=== PATIENT | female | born 1995 | race Caucasian/White ===

== ENCOUNTER 2022-10-21 12:36 | Emergency (ER) | payer BC, SELFPAY ==
[2022-10-21 12:42] VITALS: BP 128/85; PULSE 83; RESP 16; TEMP 36.2; O2SAT 100; BMI 30.2
--- NOTE | 2022-10-21 13:00 | CRLHL7_ITS ---
For Patients: As a result of the Century Cures Act, medical imaging exams and procedure reports are released immediately into your electronic medical record. You may view this report before your referring provider. If you have questions, please contact your health care provider. Indication: Trauma. Technique: Right wrist, 3 views. Comparison: None. Findings: Bones: Alignment is normal. No fractures or bone lesions. Joint spaces: Unremarkable. Soft tissues: Soft tissue swelling surrounding the wrist.. Impression: No sign of acute injury. Dictated by Skyler Aburto MD @ 10/21/2022 2:02:31 PM (Electronically Signed)
[2022-10-21] MEDS: IBUPROFEN 200 MG TABLET 600 MG PO (13:16)
--- NOTE | 2022-10-21 13:59 | ED_ITS ---
HPI - Extremity Injury (Upper) General Date Seen: 10/21/22 Chief Complaint: Extremity Pain/Injury, Upper Stated Complaint: R wrist injury Time Seen by Provider: 10/21/22 12:39 Source: patient Mode of arrival: ambulatory Limitations: no limitations History of Present Illness HPI narrative: Patient is a very nice 27-year-old female right-hand dominant who presents here after a hockey injury yesterday and like rosas, she plays beer leak hockey, and folded over right wrist when she went in the boards, with a FOOSH type mechanism. Since then she has complained of pain along the dorsum of her wrist, she has full range of motion and good maple products maker strength, but it is sore, she called the clinic today and they told her to come in as they did not have any visits. She has not taken any Tylenol or ibuprofen denies any numbness tingling or weakness, there is no other injury to her elbow shoulder neck or back. Previous history of any wrist injury Related Data Home Medications Medication Instructions Recorded Confirmed lamotrigine 150 mg tablet 150 mg PO DAILY 10/21/22 10/21/22 sertraline 100 mg tablet mg PO 10/21/22 Allergies Allergy/AdvReac Type Severity Reaction Status Date / Time No Known Drug Allergies Allergy Verified 10/21/22 12:42 Review of Systems Status of ROS: Reports: 6 or more systems reviewed and unremarkable except as noted in History and below [facility] Social History Smoking Status: Never smoker Do you use any of these nicotine containing products: None How often do you have a drink containing alcohol: never AUDIT-C Alcohol total score: 0 Non-prescribed substance use: denies use Exam Narrative: Exam Narrative: Patient is seen in room 4 she is in no apparent distress, right wrist shows with no swelling noted. In comparison to the left, she has full dorsiflexion palmar flexion both ulnar and radial deviation are normal. No tenderness over the scaphoid area but she is mildly tender over the radial dorsal area. [place] [place] Tender strengths are notably equal bilaterally, sensations normal cap refill is normal, normal elbow supination pronation and flexion extension, and normal shoulder movement are noted. Const: Vital Signs, click to edit/add: Vital Signs - 24 hr 10/21/22 12:42 Temperature 97.1 F L Pulse Rate [Right Pulse Oximeter] 83 Respiratory Rate 16 Blood Pressure [Ri ght Upper Arm] 128/85 Pulse Oximetry 100 Oxygen Delivery Me thod Room Air Documenting provider has reviewed patient's vital signs: yes Course Course Hospital Course: Discussed with her that this could be an occult navicular fracture, I will put her in a thumb spica splint, she will wear this for the next week to 10 days, and within that time will follow-up with primary care for recheck, she is nontender that time and I do not think any further things need to be done but if she is tender than of repeat x-ray will need to be done, she understands this. Splint only comes off when she showers. Tylenol ibuprofen for the discomfort. Vital Signs Vital signs: Initial Vital Signs Temperature 97.1 F L 10/21/22 12:42 Temperature Source Temporal Artery Scan 10/21/22 12:42 Pulse Rate 83 10/21/22 12:42 Pulse Rhythm Regular 10/21/22 12:42 Respiratory Rate 16 10/21/22 12:42 Blood Pressure 128/85 10/21/22 12:42 Blood Pressure Mean 99 10/21/22 12:42 Pulse Oximetry 100 10/21/22 12:42 Oxygen Delivery Method Room Air 10/21/22 12:42 Vital Signs Temperature 97.1 F L 10/21/22 12:42 Pulse Rate 83 10/21/22 12:42 Respiratory Rate 16 10/21/22 12:42 Blood Pressure 128/85 10/21/22 12:42 Pulse Oximetry 100 10/21/22 12:42 Oxygen Delivery Method Room Air 10/21/22 12:42 Temperature 97.1 F L 10/21/22 12:42 Pulse Rate 83 10/21/22 12:42 Respiratory Rate 16 10/21/22 12:42 Blood Pressure 128/85 10/21/22 12:42 Pulse Oximetry 100 10/21/22 12:42 Oxygen Delivery Method Room Air 10/21/22 12:42 MDM - Extremity Injury (Upper) Differential Diagnosis Differential diagnosis: Likely sprain and strain of wrist, fracture of wrist, finger sprain, Colles' fracture, fracture of hand and dislocation of shoulder Medical Records Attestation: I reviewed the patient's medical records. Imaging Data Wrist x-ray: My impression: No evidence of wrist abnormalities seen on x-ray, radiological over-read pending Radiologist's impression: atient: BRENDA HENRIQUEZ Facility:?[facility] Patient ID:?[id number] Site Patient ID:?[id number]. Site :?1997 Study:?XRay Extremity Right WRIST 3 VIEW-10/21/2022 1:13:52 PM Ordering Physician:Errol Orellana Final Report: Indication: Trauma. Technique: Right wrist, 3 views. Comparison: None. Findings: Bones: Alignment is normal. No fractures or bone lesions. Joint spaces: Unremarkable. Soft tissues: Soft tissue swelling surrounding the wrist.. Impression: No sign of acute injury. Dictated by Skyler Aburto MD @ 10/21/2022 2:02:31 PM (Electronic Signature) Discharge Plan Discharge Clinical Impression: Sprain and strain of wrist Patient Disposition: Home, Self-Care Condition: Stable Instructions: Wrist Injury (ED), Sprain (ED), Wrist Sprain (ED), Cold Compress or Soak (ED) Additional Instructions: Home rest use of ice and and the splint, follow-up in 1 weeks time mandatory, for recheck with primary care, if your able to move your wrist normally at that point, then no x-ray will be needed but if your still sore and I would recommend a re-x-ray to rule out a navicular fracture. Tylenol or ibuprofen also suggest. Prescriptions: No Action lamotrigine 150 mg tablet 150 mg PO DAILY sertraline 100 mg tablet PO Follow Up/Referrals: Caitlyn Lopez DO [Primary Care Provider] - Stand Alone Forms: [facility] [employer] Info Instructions
== END 2022-10-21 14:13 | disposition home or self-care (01) ==
PROVIDERS: Emergency Provider Family Medicine; PCP Family Medicine
DX: S63.501A Unspecified sprain of right wrist, initial encounter (principal); W01.0XXA Fall on same level from slipping, tripping and stumbling without subsequent striking against object, initial encounter; Y93.22 Activity, ice hockey
CPT/HCPCS: 29125; 73110; 99283; A9270

== ENCOUNTER 2024-09-24 18:29 | Emergency (ER) | payer BC, SELFPAY ==
--- OUTSIDE RECORDS SUMMARY | 2024-09-24 18:30 | XMS_ITS | Clinical Summary ---
Author Organization [email or web address] Address [address] [place] [id number] Care Team Providers Care Jigger Operator Name Role Phone Caitlyn Lopez DO Primary Care Provider [phone] Allergies No known active allergies Medications sertraline (ZOLOFT) 100 mg tabletIndicatio ns:Anxiety disorder, unspecified type Take 1.5 Tablets (150 mg) by mouth once daily. 135 Tablet 1 07/22/19 25 Active QUEtiapine (SEROQUEL) 50 mg tabletIndicatio ns:Bipolar 2 disorder, major depressive episode (HC) 25-100 mg nightly as needed for manic symptoms or insomnia. 60 Tablet 1 07/22/19 25 Active lamoTRIgine 200 mg tabletIndicatio ns:Bipolar 2 disorder, major depressive episode (HC) TAKE 1 TABLET (200 MG) BY MOUTH ONCE DAILY. 90 Tablet 1 09/20/19 25 Active lamoTRIgine 200 mg tabletIndicatio ns:Bipolar 2 disorder, major depressive episode (HC) Take 1 Tablet (200 mg) by mouth once daily. 90 Tablet 07/22/19 25 025 Discontinued Hospital, Clinic, or Other Facility Administered Medication Ordered Dose Route Frequency Start Date End Date Status levonorgestrel (KYLEENA) 17.5 mcg/24 hr (5 yrs) 19.5 mg intrauterine device (IUD) 1 DeviceIndications:Encounter for IUD insertion 1 Device IU Q 5 YEARS 09/15/2024 Active Active Problems Problem Noted Date Diagnosed Date Panic disorder with agoraphobia 02/01/2024 Pap smear for cervical cancer screening 12/06/19 22 Overview (12/05/2021): 10/2021 NIL. 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 Leonel Anders 12/30/2017 Labral tear of right hip joint 10/15/2017 Bipolar 2 disorder, major depressive episode Dysmenorrhea 04/20/2015 Anxiety disorder 04/20/2015 Tear of right acetabular labrum Resolved Problems Problem Noted Date Diagnosed Date Resolved Date Major depressive disorder, s aj episode, moderate 04/20/2015 08/18/2016 Encounters Date Type Department Care Team Description 09/17/2024 Refill [facility] [address] [place] [address] Lola Diego MD Refill Request (Lamotrigine) 09/15/2024 9:10 AM CDT Office Visit [facility] [address] [place] [address] Caitlyn Lopez DO Contraception (options) 09/15/2024 Travel 09/09/2024 10:45 AM CDT Telemedicine [facility] [address] [place] [address] Lola Diego MD Telehealth 09/09/2024 Travel 07/28/2024 Patient Outreach [facility] Care Management - Advanced Care Team [facility] [place] [address] Ginny Villanueva Complex Care Management (CCM ENGAGEMENT OUTREACH) 07/22/2024 9:45 AM SOFTWARE ENGINEER Telemedicine [facility] [address] [place] [address] Lola Diego MD Telehealth; Medication Management 07/22/2024 Travel 07/06/2024 Telephone [facility] [address] [place], [place] [address] Dash Melendez MD Results (MRI) 07/05/2024 8:56 AM SOFTWARE ENGINEER - 07/05/2024 11:59 PM SOFTWARE ENGINEER Hospital Encounter [facility] [address] [place], [place] [address] Dash Melendez MD Hip pain, left; Left hip impingement syndrome 07/05/2024 Travel from Last 3 Months Immunizations Immunization Administration Dates Next Due COVID-19 VACCINE SPIKEVAX (M ODERNA 50MCG/0.5ML) 12YO+ PFS 05/10/2024 DTaP 02/03/2003, 0,01/18/1998,11/03,1997 DTaP-HIB (TriHIBIT) 08/27/2000, 8,1997,09/13 HHgY-IjeJ-WZS (Pediarix) 1997 HPV 9 (Gardasil 9) 01/23/2016 Hepatitis A (Peds) 02/21/2016 Hepatitis A (Peds),Unspecified 02/21/2016 Hepatitis B (Peds) 02/21/2016, 8,1997,07/03 Hepatitis B, Unspecified 02/21/2016,01/06,1997,07/03 Hib Conjugate, Unspecified 08/27/2000,,1997,09/13 Human Papilloma Virus Vaccine 08/28/2011, 011 Human Papilloma Virus Vaccin e, Unspecified 01/23/2016,08/28/2011,01/29/2011 INFLUENZA, IIV3 PF (AGE >= 6 MO) 04/25/2024 Inactivated Polio Vaccine 02/03/2003,04/2000,1997,09/13 Influenza Virus, Unspecified 02/21/2016 Influenza, IIV4 04/25/2024, 3,04/04/2021,02/20 MENINGOCOCCAL VACCINE 2 VIAL 2MO-55YO (MENVEO) 02/21/2016 MMR 02/03/2003,1998 MMRV 02/03/2003,1998 Meningococcal Vaccine 02/21/2016 Tdap 05/28/2021,01/29/2011 Tdap, Unspecified 02/03/2003, 0,1997,09/13 Tuberculin (PPD) 07/26/2013,06/15/2013 Varicella Vaccine 08/28/2011,01/29/2011 Family History Medical History Relation Name Comments Unknown Father Anxiety disorder Mother Hypertension Mother Anesthesia Problem No Family History Blood Disease No Family History Relation Name Status Comments Father Mother Social History Tobacco Use Types Packs/Day Years Used Date Smoking Tobacco: Never Smokeless Tobacco: Never Tobacco Cessation:Counseling Given: Yes Alcohol Use Standard Drinks/Week Comments Yes 0 (1 standard drink = 0.6 oz pur e alcohol) 2-3 drinks a month PHQ-2 Answer Date Recorded PHQ-2 TOTAL SCORE 0 09/09/2024 Social Connections Answer Date Recorded Do you often feel lonely or isolated from those around you? 0 05/10/2024 Alcohol Use Answer Date Recorded How often do you have a drink containing alcohol ? 2 06/15/2023 How many drinks containing a lcohol do you have on a typical day when you are drinking? 0 06/15/2023 How often do you have five or more drinks on one occasion? 0 06/15/2023 Financial Resource Strain Answer Date R ecorded Difficulty of Paying Living Expenses 3 05/10/2024 Difficulty of Paying Living Expenses Not on file 05/10/2024 Food Insecurity Answer Date Recorded Do you worry your food will run out before you are able to buy more? 1 05/10/2024 Transportation Needs Answer Date Record ed Does lack of transportation keep you from medica l appointments? 1 05/10/2024 Does lack of transportation keep you from work, meetings or getting things that you need? 1 05/10/2024 Housing Stability Answer Date Recorded What is your housing situation today? 1 05/10/2024 Utilities Answer Date Recorded Do you have trouble paying f or utilities (for example, heat, electricity, water, phone)? 1 05/10/2024 Comments No Sex and Gender Information Value Date Recorded Sex Assigned at Female 05/24/2021 11:15 PM SOFTWARE ENGINEER Legal Sex Female 8:12 AM SOFTWARE ENGINEER Gender Identity Female 05/24/2021 11:15 PM SOFTWARE ENGINEER Sexual Orientation Not on file Obstetrics History Para Term AB IAB SAB Ectopic Multiple Livin g Live Births 0 0 0 0 0 0 0 0 0 0 Last Filed Vital Signs Vital Sign Reading Time Taken Comments Blood Pressure 111/70 09/15/2024 9:08 AM CDT Pulse 91 09/15/2024 9:08 AM CDT Temperature 36.7 C (98.1 F) 06/15/2024 1:05 PM SOFTWARE ENGINEER Respiratory Rate 16 10/16/2017 1:45 PM CDT Oxygen Saturation 99% 09/15/2024 9:08 AM CDT Inhaled Oxygen Concentration - - Weight 70.3 kg (155 lb) 09/15/2024 9:08 AM CDT Height 155.6 cm (5' 1.25) 09/15/2024 9:08 AM CD T Body Mass Index 29.05 09/15/2024 9:08 AM CDT Plan of Treatment Upcoming Encounters Date Type Department Care Team (Late st Contact Info) Description 10/20/2024 11:00 AM CDT Office Visit [facility] [address], [place] [id number] Giana Davis, [facility] [address] [place], [place] [id number] Health Maintenance Due Date Last Done Comments HIV for age 15-65 2012 Hepatitis C screening for age 18-79 2015 Depression screening for age 12+ 09/09/2025 09/09/2024, 07/22/2024, 04/04/2024, Additional history exists BMI (ht and wt on same day) for age 18+ 09/15/2025 09/15/2024, 06/15/2023, 10/01/2022, Additional history exists Pap test for age 21-65 09/16/2027 , 10/31/2021, 10/14/2018 Tetanus booster 05/28/2031 05/28/2021, 01/07, 02/03/2003, Additional history exists Tdap Completed 05/28/2021, 01/07, 02/03/2003, Additional history exists Influenza Vaccine Completed 04/25/2024, , 03/04/2023, Additional history exists COVID-19 vaccine series Completed 05/10/2024, 05/09 Pneumococcal series for age 6-49 Aged Out No longer eligible based on patient's age to complete this topic Medical Devices Implanted Type Area Traffic Analyst Device Identifier Shelf Expiration Date Model / Serial / Lot Ancr Shira [employer] Knotless - [id number] Implanted:Qty: 1 on 10/16/2017 by Darci Anders MD at [facility] Right: Hip [employer] 02/24/2019 [id number] / / [id number] Procedures Procedure Name Priority Date/Time Associated Diagnosis Comments HPV HIGH RISK Routine 09/15/2024 9:33 AM CDT Cervical cancer screening GC CHLAMYDIA TRACH PROBE Routine 09/15/2024 9:33 AM CDT Encounter for screening examination for chlamydial infection MR ARTHROGRAM HIP LEFT Routine 07/05/2024 11:08 AM SOFTWARE ENGINEER Hip pain, left Left hip impingement syndrome XR INJ CT/MR ARTHROGRAM HIP LEFT Routine 07/05/2024 10:16 AM SOFTWARE ENGINEER Hip pain, left Left hip impingement syndrome from Last 3 Months Results * GC & CHLAMYDIA DNA PCR [[id number]] (09/15/2024 9:33 AM CDT) CHLAMYDIA PROBE Negative 10:15 PM CDT [facility] N GONORRHOEAE PROBE Negative 09/15/2024 10:15 PM CDT [facility] Other ENDOCERVICAL CYTOLOGIC MATERIAL / Unknown Non-Blood / Unknown 09/15/2024 9:33 AM CDT 09/15/2024 10:05 AM CDT us Caitlyn Lopez DO MICROBIOLOGY Final Resu lt Performing Organization Address [facility] Co de Phone Number [facility] [address] [address], * HPV HIGH RISK (09/15/2024 9:33 AM CDT) TYPE 16 Negative Negative 09/19/2024 2:44 PM CDT [facility] TYPE 18 Negative Negative 09/19/2024 2:44 PM CDT [facility] OTHER HIGH RISK TYPES Negative Negative 09/19/2024 2:44 PM CDT [facility] Other (Cervical) Non-Blood / Unknown 09/15/2024 9:33 AM CDT 09/16/2024 8:27 AM CDT Narrative [facility] - 09/19/2024 2:44 PM CDT HPV types 16, 18, 31, 33, 35, 39, 45, 51, 52, 56, 58, 59, 66 and 68 DNA were undetectable or below the pre-set threshold. Methodology: Vandana Cristina 4800 HPV Test [facility] Itzel Lopez MICROBIOLOGY Final Resu lt Performing Organization Address [facility] de Phone Number [facility] [address] [address], * MR ARTHROGRAM HIP LEFT (07/05/2024 11:08 AM SOFTWARE ENGINEER) Anatomical Region Laterality Modality HIPL Magnetic Resonan ce 07/05/2024 4:13 PM SOFTWARE ENGINEER Narrative 07/05/2024 4:13 PM SOFTWARE ENGINEER For Patients: As a result of the 21st Century Cures Act, medical imaging exams and procedure reports are released immediately into your electronic medical record. You may view this report before your referring provider. If you have questions, please contact your health care provider. INDICATION: Hip pain. Labral tear suspected. COMPARISON: Plain films 10 May 2024. TECHNIQUE: Axial, coronal, sagittal and oblique axial T1 fat sat and sagittal and axial PD fat sat small field left hip CT dilute intra-articular gadolinium. Coronal T1 PD fat-sat Dejuan large sequences. FINDINGS: Left hip: No fracture, bone lesion or avascular necrosis with uniform well- maintained articular cartilage thickness and signal. A short curvilinear near full- thickness labral tear anterior margin best seen image 9 series 10, image 13 series 11 and image 8 series 7. No paralabral cyst. Peritrochanteric soft tissues are normal. Very slight bulbous fullness at the anterior and superior femoral head. Normal acetabular morphology. Pelvis: Artifact over the right ilium presumably from hardware. This causes signal distortion an artifact over the right hip. No obvious abnormality on large field imaging. No pelvic mass. No adenopathy. IMPRESSION : Short linear near full-thickness anterior left hip labral tear. Slightly aspherical femoral head. There may be some mild cam type impingement morphology. No chondromalacia. Dictated by Dash Lennon MD @ 07/05/2024 4:13:27 PM (Electronically Signed) Procedure Note Dash Lennon MD - 07/05/2024 For Patients: As a result of the Century Cures Act, medical imagingexams and procedure reports are released immediately into your electronicmedical record. You may view this report before your referring provider.If you have questions, please contact your health care provider. INDICATION: Hip pain. Labral tear suspected. COMPARISON: Plain films 10 May 2024. TECHNIQUE: Axial, coronal, sagittal and oblique axial T1 fat sat and sagittal andaxial PD fat sat small field left hip CT dilute intra-articulargadolinium. Coronal T1 PD fat- sat Dejuan large sequences. FINDINGS: Left hip: No fracture, bone lesion or avascular necrosis with uniformwell- maintained articular cartilage thickness and signal. A shortcurvilinear near full-thickness labral tear anterior margin best seenimage 9 series 10, image 13 series 11 and image 8 series 7. No paralabralcyst. Peritrochanteric soft tissues are normal. Very slight bulbousfullness at the anterior and superior femoral head. Normal acetabularmorphology. Pelvis: Artifact over the right ilium presumably from hardware. Thiscauses signal distortion an artifact over the right hip. No obviousabnormality on large field imaging. No pelvic mass. No adenopathy. IMPRESSION : Short linear near full-thickness anterior left hip labral tear. Slightlyaspherical femoral head. There may be some mild cam type impingementmorphology. No chondromalacia. Dictated by Dash Lennon MD @ 07/05/2024 4:13:27 PM (Electronically Signed) us Dash Melendez MD MR Final Resu lt * XR INJ CT/MR ARTHROGRAM HIP LEFT (07/05/2024 10:16 AM SOFTWARE ENGINEER) Anatomical Region Laterality Modality HIPL Computed Radiogr aphy, Other 07/05/2024 10:2 8 AM SOFTWARE ENGINEER Impressions 07/05/2024 10:28 AM SOFTWARE ENGINEER Successful left hip arthrogram, pre-MRI. Dictated by Lisa Rocha MD @ 07/05/2024 10:28:36 AM (Electronically Signed) Narrative 07/05/2024 10:28 AM SOFTWARE ENGINEER For Patients: As a result of the Cures Act, medical imaging exams and procedure reports are released immediately into your electronic medical record. You may view this report before your referring provider. If you have questions, please contact your health care provider. INDICATION: Left hip pain TECHNIQUE: Fluoroscopically-guided left hip arthrogram, pre-MRI. Fluoroscopy time: 24 seconds. 1 image. FINDINGS: The examination and risks were fully explained to the patient. A consent form was signed and a time-out conducted prior to initiating the study. Utilizing sterile procedure and 1 percent Xylocaine as local anesthesia, a 22- gauge spinal needle was directed into the left hip joint. 12 cc of a solution (containing 10 cc Omnipaque-300, 5 cc sterile saline, 5 cc ropivacaine 0.5 percent and 0.2 cc gadolinium) was injected. No bleeding at the puncture site or complication. The patient was stable at the termination of the procedure. Procedure Note Ian Rocha MD - 07/05/2024 For Patients: As a result of the Cures Act, medical imagingexams and procedure reports are released immediately into your electronicmedical record. You may view this report before your referring provider.If you have questions, please contact your health care provider. INDICATION: Left hip pain TECHNIQUE: Fluoroscopically-guided left hip arthrogram, pre-MRI. Fluoroscopy time: 24 seconds. 1 image. FINDINGS: The examination and risks were fully explained to the patient. A consentform was signed and a time-out conducted prior to initiating the study. Utilizing sterile procedure and 1 percent Xylocaine as local anesthesia, a22- gauge spinal needle was directed into the left hip joint. 12 cc of asolution (containing 10 cc Omnipaque-300, 5 cc sterile saline, 5 ccropivacaine 0.5 percent and 0.2 cc gadolinium) was injected. No bleedingat the puncture site or complication. The patient was stable at thetermination of the procedure. IMPRESSION: Successful left hip arthrogram, pre-MRI. Dictated by Lisa Rocha MD @ 07/05/2024 10:28:36 AM (Electronically Signed) Dash Melendez MD FLUOROSCOPY Final Resu lt from Last 3 Months Insurance [facility] [id number] [place] [address] [facility] [place] [address] [facility] ADVANTAGE PLAN [place] [id number] [place] [address] [place] [address] Advance Directives * Full Code (Latest Code Status on File) Date Activated Date Inactivated Comments 10/16/2017 6:13 AM 10/16/2017 7:37 AM Care Teams Jigger Operator Relationship Specialty Start Date End Date Caitlyn Lopez [place] [address] PCP - General Family Practice 06/09/16
--- OUTSIDE RECORDS SUMMARY | 2024-09-24 18:30 | XMS_ITS | Clinical Summary ---
Author Organization [employer] Address [address] [place] [address] [address] [place] [address] Care Team Providers Care Aemt Name Role Phone Provider, No Attributed RESOURCE Unavailable Unavailable Allergies No known active allergies Medications sertraline (ZOLOFT) 100 mg tablet Take 200 mg by mouth 1 time per day Active lamoTRIgine (LAMICTAL) 100 mg tablet Take 100 mg by mouth 1 time per day Active miscellaneous medication MISC 1 time per day control Active MELOXICAM PO Take by mouth 1 time per day Active amoxicillin-cla vulanate potassium (AUGMENTIN) 875-125 mg tabletIndicatio ns:Acute maxillary sinusitis, recurrence not specified Take 1 tablet by mouth 2 times a day 20 tablet 04/10/2017 Active Active Problems No known active problems Social History Tobacco Use Types Packs/Day Years Used Date Smoking Tobacco: Never Smokeless Tobacco: Never Alcohol Use Standard Drinks/Week Comments No 0 (1 standard drink = 0.6 oz pur e alcohol) Comments Unknown Sex and Gender Information Value Date Recorded Sex Assigned at Not on file Legal Sex Female 2:35 PM CDT Gender Identity Not on file Sexual Orientation Not on file Last Filed Vital Signs Vital Sign Reading Time Taken Comments Blood Pressure 100/58 04/10/2017 2:47 PM CDT Pulse 64 04/10/2017 2:47 PM CDT Temperature 36.9 C (98.5 F) 04/10/2017 2:47 PM CDT Respiratory Rate 18 04/10/2017 2:47 PM CDT Oxygen Saturation - - Inhaled Oxygen Concentration - - Weight 66.7 kg (147 lb 1.6 oz) 04/10/2017 2:47 P M CDT Height - - Body Mass Index - - Plan of Treatment Health Maintenance Due Date Last Done Comments Hepatitis C Screening 1997 HIV One Time Screening Ages 15-65 2012 Hepatitis B Vaccine (1 of 3 - 19+ 3-dose series) 2016 Lipid Screening 2018 Pap Smear 2018 TDAP/TD VACCINE (1 - Tdap) 2018 Covid-19 Vaccine ( - 2023-2 5 season) 2024 Influenza Vaccine (#1) 2024 HPV 27-45yr Vaccine (1 - 3-D OSE SERIES) 2024 HPV Vaccine Aged Out No longer eligi ble based on patient's age to complete this topic Pneumococcal Vaccine (0-5yr; and At-risk 6-49yr) Aged Out No longer eligible b ased on patient's age to complete this topic Care Teams Aemt Relationship Specialty Start Date End Date Provider, No Attributed, RESOURCE [address] PCP - Attributed Provider 05/07/17
--- NOTE | 2024-09-24 18:31 | ED_ITS ---
HPI - General Adult General Time Seen by Provider: 18:31 Date Seen: 09/24/24 Chief complaint: Urogenital Problems, Female Stated complaint: Pelvic pain Time Seen by Provider: 09/24/24 18:30 Source: patient, RN notes reviewed and old records reviewed Mode of arrival: ambulatory Limitations: no limitations History of Present Illness HPI narrative: 29-year-old female who presents today with pelvic pain. Patient had an IUD placed on the , had some cramping after that which resolved but then notes 2 days of sharp right lower quadrant pain. Pain is constant, worse with movement. Patient had intercourse a couple of days ago, pain started after that. Related Data Home Medications ?Medication ?Instructions ?Recorded ?Confirmed lamotrigine 150 mg tablet 150 mg PO DAILY 10/21/22 09/24/24 sertraline 100 mg tablet 150 mg PO Q24H 10/21/22 09/24/24 Allergies Allergy/AdvReac Type Severity Reaction Status Date / Time No Known Drug Allergies Allergy Verified 09/24/24 19:04 PFSH PFS Social History Smoking Status: Never smoker Do you use any of these nicotine containing products: None How often do you have a drink containing alcohol: never AUDIT-C Alcohol total score: 0 Non-prescribed substance use: denies use Exam Narrative: Exam Narrative: General: Well-developed and well-nourished, no acute distress Head: Atraumatic and normocephalic Eyes: Pupils are equal reactive, extraocular motions intact, conjunctiva clear ENT: External nose and ears are normal, posterior pharynx without erythema or exudate Neck: No midline cervical tenderness, full spontaneous range of motion the neck, trachea midline, no adenopathy Heart: Regular rate and rhythm no murmurs or thrills Lungs: Clear to auscultation bilaterally without wheezes or crackles Abdomen: Soft, right lower quadrant tenderness, nondistended with active bowel sounds Musculoskeletal: No tenderness, deformity, or edema Neurologic: Awake, alert, and oriented x3, no gross focal neurologic deficits, cranial nerves intact as tested Psych: Mood and affect are appropriate Skin: No rashes Const: Vital Signs, click to edit/add: Vital Signs - 24 hr 09/24/24 18:35 Temperature 98.7 F Pulse Rate [Pulse Oximeter] 86 Respiratory Rate 18 Blood Pressure [Ri ght Upper Arm] 129/75 Pulse Oximetry 99 Oxygen Delivery Me thod Room Air Course Course ED Course: Reviewed prior records, patient has had chronic hip pain, MR arthrogram of the hip performed July 05 demonstrated 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 Reviewed most recent primary care visit from September 15 which was for contraception discussion, had an IUD inserted at that time. Patient seen examined, presents with right lower quadrant tenderness 1 week after having an IUD placed. On exam here, patient is finally stable, awake and alert, right lower quadrant tenderness. Although this could be IUD related pain, it is very obviously the right lower quadrant so also consider non gynecologic causes including acute appendicitis, kidney stone, mesenteric adenitis. Also consider alternative gynecologic causes including ovarian cyst or torsion. Unfortunately, due to location of pain and recent history, patient will need both CT scan and ultrasound for complete evaluation of both gynecologic and non gynecologic causes for pain. Reevaluation(s) Time of Reevaluation #1: 19:27 Reevaluation #1: Labs independently interpreted by me with normal CBC. CT scan of the abdomen pelvis independently to baby without evidence of appendicitis, does demonstrate cysts on the right ovary. Spoke with process safety engineering technologist, there are cysts on the right ovary with no evidence of torsion. IUD is in the uterus. Vital Signs Vital signs: Initial Vital Signs Temperature 98.7 F 09/24/24 18:35 Temperature Source Temporal Artery Scan 09/24/24 18:35 Pulse Rate 86 09/24/24 18:35 Respiratory Rate 18 09/24/24 18:35 Blood Pressure 129/75 09/24/24 18:35 Blood Pressure Mean 93 09/24/24 18:35 Pulse Oximetry 99 09/24/24 18:35 Oxygen Delivery Method Room Air 09/24/24 18:35 Vital Signs Temperature 98.7 F 09/24/24 18:35 Pulse Rate 86 09/24/24 18:35 Respiratory Rate 18 09/24/24 18:35 Blood Pressure 129/75 09/24/24 18:35 Pulse Oximetry 99 09/24/24 18:35 Oxygen Delivery Method Room Air 09/24/24 18:35 Temperature 98.7 F 09/24/24 18:35 Pulse Rate 86 09/24/24 18:35 Respiratory Rate 18 04/19/25 18:35 Blood Pressure 129/75 04/19/25 18:35 Pulse Oximetry 99 09/24/24 18:35 Oxygen Delivery Method Room Air 09/24/24 18:35 Medical Decision Making Lab Data Labs: Lab Results 09/24/24 Range/Units 19:00 WBC 7.42 (4.50-11.00) K/uL RBC 4.85 (4.00-5.20) m/uL Hgb 14.4 (12.0-16.0) gm/dL Hct 42.8 (33.0-51.0) % MCV 88 (80-100) fL MCH 30 (26-34) pg MCHC 34 (32-36) gm/dL RDW Coeff of Emili 12.0 (11.5-15.5) % Plt Count 367 (140-440) K/uL Neut % (Auto) 65.6 (42.0-72.0) % Lymph % (Auto) 25.6 (20-44) % [place] % (Auto) 6.3 (0.0-11.0) % Eos % (Auto) 2.0 (0.0-7.0) % Baso % (Auto) 0.4 (0.0-3.0) % Neut # (Auto) 4.86 (1.7-7.0) K/uL Lymph # (Auto) 1.90 (0.90-2.90) K/uL [place] # (Auto) 0.50 (0.00-0.90) K/UL Eos # (Auto) 0.15 (0.00-0.50) K/uL Baso # (Auto) 0.03 (0.00-0.30) K/uL Abs Immat Gran (auto) 0.01 (0.00-0.30) K/uL Imm/Tot Granulo (auto) 0.1 % Sodium 137 (135-149) mmol/L Potassium 4.0 (3.6-5.1) mmol/L Chloride 103 (96-114) mmol/L Carbon Dioxide 24 (20-32) mmol/L Anion Gap 10 (7-15) mEq/L BUN 15 (5-24) mg/dL Creatinine 0.7 (0.5-1.5) mg/dL Estimated Creat Clear 91.10 Estimated GFR 121 ml/min Glucose 109 (60-115) mg/dL Calcium 9.4 (8.4-10.6) mg/dL Discharge Plan Discharge Clinical Impression: Ovarian cyst, IUD contraception Patient Disposition: Home w/ Parent or Adult Condition: Stable Instructions: Ovarian Cyst (ED) Additional Instructions: Your IUD appears well positioned. Take Tylenol and ibuprofen as needed for ovarian cyst. Activity Level: Activity as Tolerated Discharge Diet: Regular Prescriptions: No Action lamotrigine 150 mg tablet 150 mg PO DAILY sertraline 100 mg tablet 150 mg PO Q24H Follow Up/Referrals: Caitlyn Lopez DO [Primary Care Provider] - Stand Alone Forms: [employer] Info Instructions
[2024-09-24 18:35] VITALS: BP 129/75; PULSE 86; RESP 18; TEMP 37.1; O2SAT 99; BMI 28.7
--- NOTE | 2024-09-24 18:41 | CRLHL7_ITS ---
For Patients: As a result of the Century Cures Act, medical imaging exams and procedure reports are released immediately into your electronic medical record. You may view this report before your referring provider. If you have questions, please contact your health care provider. INDICATION: Lower abdominal pain after IUD insertion. TECHNIQUE: Ultrasound pelvis transabdominal and transvaginal for better assessment or to better visualize the endometrium. Real-time sonographic images with spectral and color Doppler imaging of the ovaries were obtained. COMPARISON: None. FINDINGS: Uterus: 7.4 x 3.1 x 4.1 cm. Normal echotexture of the myometrium. No masses. Endometrium: Transvaginal imaging was performed to better evaluate the endometrium. IUD which appears to be in appropriate position. No sign of endometrial mass or fluid. Right ovary 4.2 x 2.0 x 3.1 centimeters. Left ovary 3.4 x 1.8 x 2.1 centimeters. Tiny 2.0 centimeter collapsing right ovarian cyst. No ovarian or adnexal masses. Normal arterial and venous blood flow is demonstrated in both ovaries. Cul-de-sac: No significant free fluid. IMPRESSION: IUD which appears to be in appropriate position. Unremarkable pelvic ultrasound for age with tiny 2.0 centimeter collapsing right ovarian cyst. Dictated by Ian Magaña MD @ 09/24/2024 7:46:23 PM (Electronically Signed)
--- NOTE | 2024-09-24 18:46 | CRLHL7_ITS ---
For Patients: As a result of the Century Cures Act, medical imaging exams and procedure reports are released immediately into your electronic medical record. You may view this report before your referring provider. If you have questions, please contact your health care provider. Indication: RLQ PAIN, PAIN AFTER IUD INSERTION Technique: CT abdomen/pelvis with IV contrast utilizing 75 mL Isovue 370 Comparison: None Findings: Lower thorax: Unremarkable Abdomen/pelvis: The liver, gallbladder and biliary system, spleen, pancreas, adrenal glands, kidneys, ureters, and bladder are unremarkable in appearance. The uterus is unremarkable in appearance with well-positioned intrauterine device. The bilateral ovaries are within normal limits in appearance with likely right ovarian corpus luteal cyst measuring approximately 1.3 centimeters (series number 2, image 116). There is no evidence of bowel obstruction or inflammation. The appendix is normal. No free air, free fluid, or abscess. No abdominopelvic lymphadenopathy. The vasculature is unremarkable. Soft tissue/musculoskeletal: Stabilization pins in the right iliac bone; otherwise, the bones are unremarkable in appearance. Impression: 1. No CT evidence of an acute process involving the abdomen or pelvis. 2. Well-positioned intrauterine device. Please note that all CT scans at this facility use dose modulation, iterative reconstruction, and/or weight-based dosing when appropriate to reduce radiation dose to as low as reasonably achievable. Dictated by Tyrel Heaton MD @ 09/24/2024 7:34:13 PM (Electronically Signed)
--- OUTSIDE RECORDS SUMMARY | 2024-09-24 18:53 | XMS_ITS | Clinical Summary ---
Author Organization [employer] Address [address] [place] [address] Care Team Providers Care Cabinetmaker Apprentice Name Role Phone Caitlyn Lopez DO Primary Care Provider [phone] Allergies No known active allergies Medications sertraline [...] Type Department Care Team Description 09/17/2024 Refill [facility] [address] [place] [address] Lola Diego MD Refill Request (Lamotrigine) 09/15/2024 9:10 AM CDT Office Visit [facility] [address] [place] [address] Caitlyn Lopez DO Contraception (options) 09/15/2024 Travel 09/09/2024 10:45 AM CDT Telemedicine [facility] [address] [place] [address] Lola Diego MD Telehealth 09/09/2024 Travel 07/28/2024 Patient Outreach [facility] Care Management - Advanced Care Team On license of [facility] [place] [address] Ginny Villanueva Complex Care Management (CCM ENGAGEMENT OUTREACH) 07/22/2024 9:45 AM PLATE SLITTER AND INSPECTOR Telemedicine [facility] [address] [place] [address] Lola Diego MD Telehealth; Medication Management 07/22/2024 Travel 07/06/2024 Telephone [facility] [address] [place], [place] [address] Dash Melendez MD Results (MRI) 07/05/2024 8:56 AM PLATE SLITTER AND INSPECTOR - 07/05/2024 11:59 PM PLATE SLITTER AND INSPECTOR Hospital Encounter [facility] [address] [place], [place] [address] Dash Melendez MD Hip pain, left; Left hip impingement syndrome 07/05/2024 Travel from Last 3 Months Immunizations Immunization Administration Dates Next Due COVID-19 VACCINE SPIKEVAX (M ODERNA 50MCG/0.5ML) 12YO+ PFS 05/10/2024 DTaP 02/03/2003, 0,01/18/1998,11/03,1997 DTaP-HIB (TriHIBIT) 08/27/2000, 8,1997,09/13 [id number] (Pediarix) 1997 HPV 9 (Gardasil 9) 01/23/2016 [...] Sex Assigned at Female 05/24/2021 11:15 PM PLATE SLITTER AND INSPECTOR Legal Sex Female 8:12 AM PLATE SLITTER AND INSPECTOR Gender Identity Female 05/24/2021 11:15 PM PLATE SLITTER AND INSPECTOR Sexual Orientation Not on file Obstetrics History Para Term AB IAB SAB Ectopic Multiple Livin g Live Births 0 0 0 0 0 0 0 0 0 0 Last Filed Vital Signs Vital Sign Reading Time Taken Comments Blood Pressure 111/70 09/15/2024 9:08 AM CDT Pulse 91 09/15/2024 9:08 AM CDT Temperature 36.7 C (98.1 F) 06/15/2024 1:05 PM PLATE SLITTER AND INSPECTOR Respiratory Rate 16 10/16/2017 1:45 PM CDT [...] Description 10/20/2024 11:00 AM CDT Office Visit [facility] [address], [place] [id number] Giana Davis, [facility] [address] [place], [place] [id number] Health Maintenance Due Date Last Done Comments [...] this topic Medical Devices Implanted Type Area Ticket Collector Device Identifier Shelf Expiration Date Model / Serial / Lot Ancr Shira [employer] - [id number] Implanted:Qty: 1 on 10/16/2017 by Darci Anders MD at [facility] Right: Hip [employer] 02/24/2019 [id number] / / [id number] Procedures Procedure Name Priority Date/Time Associated Diagnosis Comments HPV HIGH RISK Routine 09/15/2024 9:33 AM CDT Cervical cancer screening GC CHLAMYDIA TRACH PROBE Routine 09/15/2024 9:33 AM CDT Encounter for screening examination for chlamydial infection MR ARTHROGRAM HIP LEFT Routine 07/05/2024 11:08 AM PLATE SLITTER AND INSPECTOR Hip pain, left Left hip impingement syndrome XR INJ CT/MR ARTHROGRAM HIP LEFT Routine 07/05/2024 10:16 AM PLATE SLITTER AND INSPECTOR Hip pain, left Left hip impingement syndrome from Last 3 Months Results * GC & CHLAMYDIA DNA PCR [[id number]] (09/15/2024 9:33 AM CDT) CHLAMYDIA PROBE Negative 10:15 PM CDT [facility] N GONORRHOEAE PROBE Negative 09/15/2024 10:15 PM CDT [facility] Other ENDOCERVICAL CYTOLOGIC MATERIAL / Unknown Non-Blood / Unknown 09/15/2024 9:33 AM CDT 09/15/2024 10:05 AM CDT us Caitlyn Lopez DO MICROBIOLOGY Final Resu lt Performing Organization Address [facility] Co de Phone Number [facility] [address] [address], * HPV HIGH RISK (09/15/2024 9:33 AM CDT) TYPE 16 Negative Negative 09/19/2024 2:44 PM CDT [facility] TYPE 18 Negative Negative 09/19/2024 2:44 PM CDT [facility] OTHER HIGH RISK TYPES Negative Negative 09/19/2024 2:44 PM CDT [facility] Other (Cervical) Non-Blood / Unknown 09/15/2024 9:33 AM CDT 09/16/2024 8:27 AM CDT Narrative [facility] - 09/19/2024 2:44 PM CDT HPV types 16, 18, 31, 33, 35, 39, 45, 51, 52, 56, 58, 59, 66 and 68 DNA were undetectable or below the pre-set threshold. Methodology: Vandana Cristina 4800 HPV Test [facility] Itzel Lopez MICROBIOLOGY Final Resu lt Performing Organization Address [facility] de Phone Number [facility] [address] [address], * MR ARTHROGRAM HIP LEFT (07/05/2024 11:08 AM PLATE SLITTER AND INSPECTOR) Anatomical Region Laterality Modality HIPL Magnetic Resonan ce 07/05/2024 4:13 PM PLATE SLITTER AND INSPECTOR Narrative 07/05/2024 4:13 PM PLATE SLITTER AND INSPECTOR For Patients: As a result of the [...] CT/MR ARTHROGRAM HIP LEFT (07/05/2024 10:16 AM PLATE SLITTER AND INSPECTOR) Anatomical Region Laterality Modality HIPL Computed Radiogr aphy, Other 07/05/2024 10:2 8 AM PLATE SLITTER AND INSPECTOR Impressions 07/05/2024 10:28 AM PLATE SLITTER AND INSPECTOR Successful left hip arthrogram, pre-MRI. Dictated by Lisa Rocha MD @ 07/05/2024 10:28:36 AM (Electronically Signed) Narrative 07/05/2024 10:28 AM PLATE SLITTER AND INSPECTOR For Patients: As a result of the [...] @ 07/05/2024 10:28:36 AM (Electronically Signed) Dash Meelndez MD FLUOROSCOPY Final Resu lt from Last 3 Months Insurance [facility] [address] [place] [address] FORMERLY [facility] [place] [address] [facility] [employer] [place] [address] [place] [address] [facility] [place] [address] Advance Directives * Full Code (Latest Code Status on File) Date Activated Date Inactivated Comments 10/16/2017 6:13 AM 10/16/2017 7:37 AM Care Teams Cabinetmaker Apprentice Relationship Specialty Start Date End Date Caitlyn [place] [address] PCP - General Family Practice 06/09/16
--- OUTSIDE RECORDS SUMMARY | 2024-09-24 18:53 | XMS_ITS | Clinical Summary ---
Author Organization [employer] [facility] Address [address] [place] [address] [address] [place] [address] Care Team Providers Care Gis Application Developer Name Role Phone Provider, No Attributed RESOURCE [...] age to complete this topic Care Teams Gis Application Developer Relationship Specialty Start Date End Date Provider, No Attributed, RESOURCE [address] PCP - Attributed Provider 05/07/17
[2024-09-24 19:09] LABS: Basophils Absolute Auto 0.03 K/uL (0.00-0.30); Basophils Percent Auto 0.4 % (0.0-3.0); Eosinophils Absolute Auto 0.15 K/uL (0.00-0.50); Hematocrit 42.8 % (33.0-51.0); Hemoglobin* 14.4 gm/dL (12.0-16.0); Immature Granulocytes Abs Auto 0.01 K/uL (0.00-0.30); Immature Granulocytes Pct Auto 0.1 %; Lymphocytes Percent Auto 25.6 % (20-44); Mean Corpuscular HGB Conc 34 gm/dL (32-36); Mean Corpuscular Hemoglobin 30 pg (26-34); Mean Corpuscular Volume 88 fL (80-100); Monocytes Percent Auto 6.3 % (0.0-11.0); Neutrophils Absolute Auto 4.86 K/uL (1.7-7.0); Neutrophils Percent Auto 65.6 % (42.0-72.0); Platelet Count* 367 K/uL (140-440); Red Blood Count 4.85 m/uL (4.00-5.20); Slide Review Reflex No; White Blood Count* 7.42 K/uL (4.50-11.00)
[2024-09-24 19:23] LABS: Chloride* 103 mmol/L (96-114)
[2024-09-24 19:24] LABS: Sodium* 137 mmol/L (135-149)
[2024-09-24 19:27] LABS: Anion Gap 10 mEq/L (7-15); Blood Urea Nitrogen* 15 mg/dL (5-24); Calcium* 9.4 mg/dL (8.4-10.6); Carbon Dioxide* 24 mmol/L (20-32); Creatinine* 0.7 mg/dL (0.5-1.5); Estimated Glomerular Filt Rate 121 ml/min; Glucose* 109 mg/dL (60-115)
== END 2024-09-24 20:03 | disposition home or self-care (01) ==
PROVIDERS: Emergency Provider Family Medicine; PCP Family Medicine
DX: N83.201 Unspecified ovarian cyst, right side (principal); Z30.431 Encounter for routine checking of intrauterine contraceptive device
CPT/HCPCS: 36415; 74177; 76830; 80048; 81001; 85025; 93976; 99284; Q9967

== ENCOUNTER 2024-12-20 13:00 | Outpatient (RCR) | payer BC, SELFPAY | END 2025-04-19 23:59 | disposition home or self-care (01) | PROVIDERS: PCP Family Medicine; Visit Provider Family Medicine | DX: M25.552 Pain in left hip (principal); Z51.89 Encounter for other specified aftercare | CPT/HCPCS: 97110; 97140; 97162 ==